=== PATIENT | male | born 1975 | race Caucasian/White ===

== ENCOUNTER 2020-10-02 19:35 | Emergency (ER) | payer SELFPAY ==
--- NOTE | 2020-10-02 19:29 | ED.PSYCH ---
HPI - Psych General Chief Complaint: Psychiatric Symptoms <Patricia Baig MD - Last Filed: 10/02/20 20:46> Stated Complaint: SI, no meds for 3 months <Patricia Baig MD - Last Filed: 10/02/20 20:46> Source: patient and EMS <Patricia Baig MD - Last Filed: 10/02/20 20:46> Mode of arrival: ambulatory <Patricia Baig MD - Last Filed: 10/02/20 20:46> Limitations: clinical condition <Patricia Baig MD - Last Filed: 10/02/20 20:46> History of Present Illness HPI Narrative: Patient is a 45-year-old gentleman with a history of homelessness, bipolar disorder, schizophrenia who has been without medications over the past 3 months, who was found at a local [employer] this evening, mumbling to himself, somewhat incoherent, thus police were called and thus activated EMS. Patient currently stating that he hears the voice of God, is hearing about all the suicides he has done in the past, the voice of God is a woman who always talks to him. He is reporting auditory hallucinations. He is reporting deep spiritual pain. Patient does endorse suicidal ideation,states he may decide to step in front of a fast train or car. Pt with [place] arm band in place, dated 10/01. <Patricia Baig MD - Last Filed: 10/02/20 20:46> Review of Systems Review of Systems: Narrative: CONSTITUTIONAL: Denies fever CARDIOVASCULAR: Denies chest pain RESPIRATORY: Denies cough or dyspnea. GASTROINTESTINAL: Denies abdominal pain SKIN: Denies rash MUSCULOSKELETAL: Denies back pain NEUROLOGIC: Denies headache <Patricia Baig MD - Last Filed: 10/02/20 20:46> PMFSH Past Medical History Medical History: Medical History Bipolar disorder Schizophrenia <Patricia Baig MD - Last Filed: 10/02/20 20:46> Social History Social History: Social History (Updated 10/02/20 @ 19:41 by Patricia Baig MD) Smoking status: Current every day smoker Tobacco type: cigarettes Substance use: unknown Living arrangements: homeless Occupation/Education: unemployed Gender identity (if verbalized by the patient): Male Sexual Orientation (if Verbalized by the Patient): Straight or Heterosexual <Patricia Baig MD - Last Filed: 10/02/20 20:46> Exam Narrative: Exam Narrative: GENERAL: Awake, alert, conversant HEAD: Normocephalic, atraumatic. EYES: PERRLA and EOMI. ENT: Nares clear, no rhinorrhea or epistaxis. Mucous membranes moist. NECK: Supple. CHEST: No respiratory distress, breathing even and non labored HEART: Regular rate, sinus rhythm ABDOMEN:Non distended, non tender EXTREMITIES: Normal range of motion. No edema. SKIN: Warm, dry, no rash. NEURO:No focal deficits. Alert and oriented x3 Psych: Auditory hallucinations, endorsing suicidal ideation <Patricia Baig MD - Last Filed: 10/02/20 20:46> Course Course Emergency Course: Patient was medically cleared for psychiatric evaluation. The patient has been seen by the screener and it was recommended that the patient be admitted under involuntary status the committal was signed Patient was accepted at [facility] <Willie Oneal MD - Last Filed: 10/03/20 04:56> Vital Signs Vital signs: Vital Signs Temperature 37.2 C 10/02/20 19:42 Pulse Rate 94 10/02/20 19:42 Respiratory Rate 18 10/02/20 19:42 Blood Pressure 141/83 H 10/02/20 19:42 Pulse Oximetry 97 10/02/20 19:42 Temperature 36.7 C 10/03/20 03:10 Pulse Rate 72 10/03/20 03:10 Respiratory Rate 16 10/03/20 03:10 Blood Pressure 123/77 10/03/20 03:10 Pulse Oximetry 97 10/03/20 03:10 <Patricia Baig MD - Last Filed: 10/02/20 20:46> Vital Signs Temperature 37.2 C 10/02/20 19:42 Pulse Rate 94 10/02/20 19:42 Respiratory Rate 18 10/02/20 19:42 Blood Pressure 141/83 H 10/02/20 19:42 Pulse Oximetry 97 10/02/20 19:42 Temperature 36.7 C
[2020-10-02 19:42] VITALS: BP 141/83; PULSE 94; RESP 18; TEMP 37.2; O2SAT 97
[2020-10-02 20:06] LABS: Basophils Percent Auto 0.4 % (0.2-1.2); Eosinophils Absolute Auto 0.1 K/mm3 (0-0.3); Eosinophils Percent Auto 0.7 % (0-4.4); Hematocrit 37.5 % (42.0-52.0); Hemoglobin 12.5 g/dL (14.0-18.0); Immature Granulocyte Absolute 0.03 K/mm3 (0.00-0.031); Immature Granulocyte Percent A 0.3 % (0-0.5); Lymphocytes Absolute Auto 1.88 K/mm3 (0.9-3.2); Lymphocytes Percent Auto 16.5 % (18.3-44.2); Mean Corpuscular HGB Conc 33.3 g/dl (32-36); Mean Platelet Volume 9.7 fl (7.4-10.4); Monocytes Absolute Auto 0.6 K/mm3 (0.1-0.6); Monocytes Percent Auto 5.1 % (2.6-8.5); Neutrophils Absolute Auto 8.8 K/mm3 (1.3-6.7); Platelet Count Result 273 k/mm3 (150-375); Red Blood Count 4.31 M/mm3 (4.6-6.20); Red Cell Distribution Width 13.9 % (11.5-14.5); White Blood Count 11.4 K/mm3 (4.5-10.0)
--- NOTE | 2020-10-02 20:06 | ECG_ITS ---
Measurements Intervals [place] Rate: 75 P: 65 MI: 201 QRS: 46 QRSD: 97 T: 59 QT: 353 QTc: 394 Interpretive Statements SINUS RHYTHM EARLY PRECORDIAL R/S TRANSITION BASELINE WANDER- V4 BORDERLINE ECG Electronically Signed On 10-03-2020 8:46:54 [employer]FER by Hai Oshae D.O.
[2020-10-02 20:11] LABS: Add Urine Microscopic? NO; Appearance Urine Clear (Clear); Bilirubin Urine Negative (Negative); Blood Urine Negative (Negative); Color Urine Straw (Yellow); Glucose Urine UA Negative (Negative); Ketones Urine Negative (Negative); Leukocyte Esterase Ur Negative LEU/UL (Negative); Nitrate Urine Negative (Negative); Protein Urine Negative (Negative); Specific Grav Ur 1.008 (1.001-1.035); Urobilinogen Urine Negative mg/dL (<2.0)
--- NOTE | 2020-10-02 20:13 | PC.NURSE ---
Called lab to add on TSH
[2020-10-02 20:19] LABS: Ethanol < 10 mg/dL (<10)
[2020-10-02 20:20] LABS: Anion Gap 12 mmol/L (8-16); Blood Urea Nitrogen 12 mg/dL (9-20); Calcium 8.7 mg/dL (8.4-10.2); Carbon Dioxide 24 mmol/L (22-30); Chloride 101 mmol/L (98-107); Estimated CRCL calculation 178 ml/min; Estimated Glomerular Filt Rate > 60; Glucose 126 mg/dL (75-110); Potassium 3.5 mmol/L (3.4-5.0); Sodium 137 mmol/L (137-145)
--- NOTE | 2020-10-02 20:34 | PC.NURSE ---
pt. requesting room with TV, informed that was not possible.
[2020-10-02 20:38] LABS: Amphetamine Screen Urine Negative (Negative); Barbiturate Screen Urine Negative (Negative); Benzodiazepines Screen Urine Negative (Negative); Cannabinoid Screen Urine Negative (Negative); Cocaine Screen Urine Negative (Negative); Methadone Screen Urine Negative (Negative); Opiate Screen Urine Negative (Negative); Phencyclidine Screen Urine Negative (Negative)
--- NOTE | 2020-10-02 21:00 | PC.NURSE ---
I did not collect the urine for tox screen but charted it as done on the worklist
--- NOTE | 2020-10-02 23:39 | PC.NURSE ---
Received fax from [facility] stating they are unable to accept patient at this time and requesting additional information. Informed nurse and charge nurse.
[2020-10-03 03:10] VITALS: BP 123/77; PULSE 72; RESP 16; TEMP 36.7; O2SAT 97
--- NOTE | 2020-10-03 04:00 | PC.NURSE ---
Transport arranged with [facility]
[2020-10-04 17:05] LABS: SARS-CoV-2 RNA PCR Negative
== END 2020-10-03 06:20 ==
PROVIDERS: Emergency Medicine; Emergency Provider Emergency Medicine
DX: R45.851 Suicidal ideations (principal); F20.9 Schizophrenia, unspecified; Z20.828 Contact with and (suspected) exposure to other viral communicable diseases; F31.9 Bipolar disorder, unspecified; F17.210 Nicotine dependence, cigarettes, uncomplicated; Z59.0 Homelessness; R94.31 Abnormal electrocardiogram [ECG] [EKG]
CPT/HCPCS: 36415; 80048; 80307; 81003; 84443; 85025; 87635; 93005; 99285; C9803; U0003